=== PATIENT | male | born 1965 | race Caucasian/White ===

== ENCOUNTER 2017-10-12 16:50 | Emergency (ER) | payer OTHER ==
[2017-10-12 17:22] VITALS: BP 113/81
[2017-10-12] MEDS ORDERED: MOTRIN PO ONE (18:00)
[2017-10-12] MEDS ORDERED: NORCO 5/325 PO ONE (18:00)
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
== END 2017-10-12 20:16 | disposition home or self-care (01) ==
LOC: ED 16:50
DX: M25.551 Pain in right hip (principal); M25.511 Pain in right shoulder; M54.2 Cervicalgia; F17.200 Nicotine dependence, unspecified, uncomplicated; V49.59XA Passenger injured in collision with other motor vehicles in traffic accident, initial encounter; Y93.89 Activity, other specified; Y92.89 Other specified places as the place of occurrence of the external cause; Y99.8 Other external cause status
CPT/HCPCS: 72040; 99283